=== PATIENT | male | born 1995 | race Two or more races ===

== ENCOUNTER 2018-12-14 03:13 | Emergency (ER) | payer SELFPAY ==
[2018-12-14] MEDS ORDERED: Lidocaine 1% with EPINEPHrine 1:100,000 20 ML MDV INJECT ONE (03:39)
[2018-12-14] MEDS ORDERED: Bupivacaine 0.5% 10 ML SDV INJECT ONE (03:39)
--- NOTE | 2018-12-14 03:42 | EDM.PDOC ---
ED HPI GENERAL MEDICAL PROBLEM - General Chief Complaint: Upper Extremity Injury/Pain Stated Complaint: FELL AND CUT RIGHT HAND Time Seen by Provider: 12/14/18 03:31 Source of Information: Reports: Patient, Significant Other (Girlfriend) History Limitations: Reports: No Limitations - History of Present Illness INITIAL COMMENTS - FREE TEXT/NARRATIVE: Mr. Lang is a pleasant 23-year-old man who states that he was running around 02: 45 this morning, when he tripped and fell onto concrete on his outstretched right hand. He presents with a laceration to the proximal aspect of his right palm. He states that he is otherwise in uninjured. The patient's last tetanus vaccination was in July of this year. The patient's PCP is in [place]. Left Hand Pain Score (Numeric/FACES): 8 - Related Data Allergies Allergy/AdvReac Type Severity Reaction Status Date / Time No Known Allergies Allergy Verified 12/14/18 03:29 Home Meds: Home Meds . [No Known Home Meds] 12/14/18 [History] Past Medical History Musculoskeletal History: Reports: Fracture (left ankle) - Past Surgical History GI Surgical History: Reports: Appendectomy Social & Family History - Tobacco Use Smoking Status *Q: Never Smoker - Caffeine Use Caffeine Use: Reports: None - Alcohol Use Alcohol Use History: No - Recreational Drug Use Recreational Drug Use: No - Living Situation & Occupation Living situation: Reports: Single, Alone Occupation: Student ([employer]) Review of Systems - Review of Systems Review Of Systems: ROS reveals no pertinent complaints other than HPI. ED EXAM, GENERAL - Physical Exam Exam: See Below Exam Limited By: No Limitations General Appearance: Alert, WD/WN, No Apparent Distress Extremities: Other (There is an approximately 4 cm V-shaped flap laceration to the proximal aspect of the patient's right palm. There are a few abrasions on the palm and volar wrist, but no other significant abnormalities found. Neurovascular status of the right upper extremity is intact.) ED TRAUMA EXTREMITY PROCEDURES - Laceration/Wound Repair Right Hand Lac/Wound Length In cm: 4.0 Appearance: Subcutaneous, Stellate, Clean Distal NVT: Neuro & Vascular Intact, No Tendon Injury Anesthetic Type: Local Local Anesthesia - Lidocaine (Xylocaine): 1% with EPI (50:50 admixture) Local Anesthesia - Bupivicaine (Marcaine): 0.5% Plain (50:50 admixture) Local Anesthetic Volume: 2cc Skin Prep: Providone-Iodine (Betadine) Exploration/Debridement/Repair: Wound Explored, In a Bloodless Field, Explored to Base, No Foreign Material Found Closed With: Sutures Suture Size: 3-0 # of Sutures: 6 Suture Type: Nylon (Ethilon), Interrupted, Simple Sterile Dressing Applied: Nurse Tetanus Status Addressed: Yes Complications: No Course - Vital Signs Last Recorded V/S: Last Vital Signs Temp 36.6 C 12/14/18 03:29 Pulse 70 12/14/18 03:29 Resp 20 12/14/18 03:29 BP 146/90 H 12/14/18 03:29 Pulse Ox 99 12/14/18 03:29 - Orders/Labs/Meds Meds: Medications Discontinued Medications Generic Name Dose Route Start Last Admin Trade Name Rosio PRN Reason Stop Dose Admin Bupivacaine HCl 10 ml 12/14/18 03:39 12/14/18 04:10 Sensorcaine-Mpf 0.5% INJECT 12/14/18 03:40 10 ml ONETIME ONE Administration Cephalexin 500 mg 12/14/18 04:32 12/14/18 04:41 Keflex PO 12/14/18 04:33 500 mg ONETIME STA Administration Cephalexin Confirm 12/14/18 04:39 12/14/18 04:49 Keflex Administered 12/14/18 04:40 Not Given Dose 500 mg .ROUTE .STK-MED ONE Lidocaine/Epinephrine 20 ml 12/14/18 03:39 12/14/18 04:10 Xylocaine 1% With Epinephrine 1:100,000 INJECT 12/14/18 03:40 20 ml ONETIME ONE Administration - Re-Assessments/Exams Free Text/Narrative Re-Assessment/Exam: 12/14/18 04:34 A sterile field was established with Betadine and sterile towels. The wound was then anesthetized with a 50:50 admixture of lidocaine 1% with epinephrine and bupivacaine 0.5% without epinephrine. The wound was then closed with 6 simple interrupted sutures, using 3-0 Ethilon. The patient tolerated the procedure well. The patient's nurse will apply a thin smear of bacitracin ointment, then cover the wound with a clean dressing. I would like the patient to keep his wound clean with ordinary soap and water when he bathes, then reapply bacitracin ointment and a clean dressing, daily. Because of the location and complexity of the wound, I feel the patient would benefit from a short course of antibiotics, therefore he will be started on Keflex, and I will prescribe a 5 -day course via [facility]. The sutures should be ready for removal by . Departure - Departure Time of Disposition: 04:37 Disposition: Home, Self-Care 01 Condition: Good Clinical Impression: Laceration of right hand - Discharge Information *PRESCRIPTION DRUG MONITORING PROGRAM REVIEWED*: Not Applicable *COPY OF PRESCRIPTION DRUG MONITORING REPORT IN PATIENT [place]: Not Applicable Instructions: Laceration Care, Adult, [id number] Referrals: PCP,Not In Area [Primary Care Provider] - Forms: ED Department Discharge Additional Instructions: You were seen in the emergency room after falling and cutting your right palm. Your wound was closed in the ER with 6 sutures. Keep the wound clean with ordinary soap and water when you bathe. Pat the wound dry, apply a thin smear of bacitracin ointment, then cover with a clean dressing , daily. You have been started on the antibiotic Keflex. A prescription for Keflex has been provided to you via [facility]. Take one tablet of Keflex every 6 hours, as prescribed. Finish the entire prescription unless told otherwise by a doctor. Take [id number] ibuprofen, 2-3 tablets (400-600 mg) every 8 hours, with food, as needed for discomfort. The sutures should be ready for removal by 12/22/2018. They can be removed at the walk-in clinic or in the ER. Do not try to remove the sutures yourself. If any other problems, please do not hesitate to return to the ER.
[2018-12-14] MEDS ORDERED: Cephalexin 500 MG Cap PO STA (04:32)
[2018-12-14] MEDS ORDERED: Cephalexin 500 MG Cap ONE (04:39)
== END 2018-12-14 04:45 | disposition home or self-care (01) ==
LOC: JD.ED 03:13
DX: S61.411A Laceration without foreign body of right hand, initial encounter (principal); Z90.49 Acquired absence of other specified parts of digestive tract; W01.0XXA Fall on same level from slipping, tripping and stumbling without subsequent striking against object, initial encounter
CPT/HCPCS: 12002; 99282; A9270; J3490; 12001; 99283